=== PATIENT | female | born 1995 | race Two or more races ===

== ENCOUNTER 2018-02-14 19:58 | Emergency (ER) | payer MEDICAID ==
[~2018-02-14] VITALS: Ht 160 cm; Wt 46.7 kg
[2018-02-14] MEDS ORDERED: [UNRECOGNIZED DRUG - REMARK] (20:06)
[2018-02-14 20:25] VITALS: BP 128/68
[2018-02-14] MEDS ORDERED: IBUPROFEN600 MG ORAL (20:39)
[2018-02-14 20:50] VITALS: BP 128/68
--- NOTE | 2018-02-14 21:11 | Diagnostic Imaging Report ---
EXAM: XR Right Elbow Complete, 3 or More Views CLINICAL HISTORY: PAIN TECHNIQUE: Frontal, lateral and oblique views of the right elbow. COMPARISON: No relevant prior studies available. FINDINGS: Bones/joints: No acute displaced fracture or dislocation. No significant joint effusion. Soft tissues: Unremarkable. IMPRESSION: No acute displaced fracture or dislocation.
--- NOTE | 2018-02-14 22:01 | Emergency Room Report ---
History of Present Illness General Chief Complaint: Upper Extremity Injury Source: Patient Present Illness HPI Patient is a 22-year-old female who presented after increased right upper extremity pain. Patient reports having struck her right elbow onto a fixed object. She reports being right-hand dominant. Patient reports having some pain to her right elbow as well as pain to the right ring and small finger. The patient had injury short time prior to arrival. Patient denies any other injuries. She noted some swelling to the area. Allergies: Coded Allergies: No Known Allergies (Unverified , 02/14/18) Patient History Past Medical History: see triage record Last Menstrual Period: 3 weeks ago Now: No - control pill Reviewed Nursing Documentation: PMH: Agreed; PSxH: Agreed Nursing Documentation-PMH Past Medical History: No Stated History Review of Systems All Other Systems: negative except mentioned in HPI Physical Exam Vital Signs Date Time Temp Pulse Resp B/P (MAP) Pulse Ox O2 Delivery O2 Flow Rate FiO2 02/14/18 20:01 97.9 89 16 130/74 100 Room Air 97.9 General Appearance: well appearing, no apparent distress, alert, GCS 15 Head: normocephalic, atraumatic ENT: hearing grossly normal, normal voice Neck: full range of motion, supple Respiratory: lungs clear, normal breath sounds, no respiratory distress, speaking full sentences Musculoskeletal: no calf tenderness, decreased range of mation, other - normal hand function, ulnar nerve distribution tingling. Neurologic: normal gait Psychiatric: mood/affect normal Skin: no rash Medical Decision Making Diagnostic Impression: Primary Impression: Contusion of ulnar nerve ER Course Patient present for right elbow pain. Differential diagnosis included but was not limited to fracture, contusion, vascular insufficiency,cellulitis. X-ray imaging of the right arm 3 views interpreted by me showed normal bony alignment without evident fracture indication pain. The patient appears to have an ulnar nerve contusion. The patient does not show any evidence of fracture on x-rays. The patient was advised to ice the area. she is given a sling for comfort. Other X-Ray Diagnostic Results Other X-Ray Diagnostic Results : # of Views/Limited Vs Complete: 3 View Indication: Pain EP Interpretation: Yes Interpretation: no dislocation, no soft tissue swelling, no fractures Impression: No acute disease Electronically Signed by: Electronically signed by Dr. Saturnino Mnazano M.D. Last Vital Signs Date Time Temp Pulse Resp B/P (MAP) Pulse Ox O2 Delivery O2 Flow Rate FiO2 02/14/18 20:01 97.9 89 16 130/74 100 Room Air 97.9 Status: improved Disposition: HOME, SELF-CARE Condition: Stable Scripts Ibuprofen* (MOTRIN*) 600 Mg Tablet 600 MG ORAL Q8H PRN for For Pain, #30 TAB 0 Refills Prov: Saturnino Manzano MD 02/14/18 Referrals: [facility],REFERRING (PCP) Patient Instructions: Ulnar Nerve Contusion With Rehab[facility] Saturnino Manzano MD February 14, 2018 22:01
== END 2018-02-14 20:50 | disposition home or self-care (01) ==
LOC: EMR 20:29
DX: S40.021A Contusion of right upper arm, initial encounter (principal); W22.8XXA Striking against or struck by other objects, initial encounter; Y92.89 Other specified places as the place of occurrence of the external cause
CPT/HCPCS: 99283